=== PATIENT | male | born 1960 ===

== ENCOUNTER 2021-05-07 12:01 | Observation (INO) ==
[~2021-05-07 12:01] MED LIST: Buffered Lidocaine 1% SYRIN 1 ml INTRADERM ONE; Lactated Ringers 1000 ml BAG 1,000 ML IV SCH
[2021-05-07] MEDS ORDERED: ceFAZolin 2 GM in NS PREMIX 2 GM/100 ML BAG IVPB ONE (13:00)
[2021-05-07] MEDS ORDERED: Phenylephrine IV 10 MG/ML 1 ml VIAL ONE (13:05)
[2021-05-07] MEDS ORDERED: fentaNYL 100 mcg/2 ml 50 MCG/ML VIAL ONE ×2 (13:05→17:24)
[2021-05-07] MEDS ORDERED: Lidocaine 2% PF 5 ML VIAL ONE ×2 (13:05→13:58)
[2021-05-07] MEDS ORDERED: Midazolam 2 mg/2 ml VIAL 1 mg/ml 2 ml VIAL (2 mg) ONE (13:05)
[2021-05-07] MEDS ORDERED: Propofol 10 MG/ML 20 ML BTL ONE (13:06)
[2021-05-07] MEDS ORDERED: ROPIVACAINE 5 MG/ML 30 ML BTL (0.5%) ONE ×2 (13:29→13:57)
[2021-05-07] MEDS ORDERED: Dexmedetomidine 200 mcg/2 ml 2 ml VIAL (200 mcg) ONE (13:57)
[2021-05-07] MEDS ORDERED: Ondansetron 4 mg VIAL 2 MG/ML 2 ml VIAL ONE (15:02)
[2021-05-07] MEDS ORDERED: Dexamethasone IV 4 MG/ML VIAL 1 ml VIAL ONE (15:02)
[2021-05-07] MEDS ORDERED: Morphine 2 MG/ML SYRINGE IV PRN (15:42)
[2021-05-07] MEDS ORDERED: Ondansetron 4 mg VIAL 2 MG/ML 2 ml VIAL IV PRN (15:42)
[2021-05-07] MEDS ORDERED: Lactulose 30 ml UDC PO PRN (15:42)
[2021-05-07] MEDS ORDERED: diPHENhydraMINE 25 mg TAB PO PRN (15:42)
[2021-05-07] MEDS ORDERED: Ondansetron ODT 4 mg TAB 4 MG TAB PO PRN (15:42)
[2021-05-07] MEDS ORDERED: diPHENhydraMINE IV 50 MG/ML 1 ml VIAL (BENADRYL) IV PRN (15:42)
[2021-05-07] MEDS ORDERED: Magnesium Hydroxide LIQ 30 ML UDC PO PRN (15:42)
[2021-05-07] MEDS ORDERED: Morphine 4 MG/ML VIAL (1 ml) IV PRN (17:16)
[2021-05-07] MEDS ORDERED: oxyCODONE/Acetamin 5/325 mg TAB ONE ×2 (17:24→17:59)
[2021-05-07] MEDS: fentaNYL 100 mcg/2 ml 50 MCG/ML VIAL IV PRN ×2 (17:25→17:33)
[2021-05-07] MEDS: oxyCODONE/Acetamin 5/325 mg TAB PO PRN ×2 (17:26→17:59)
[2021-05-07] MEDS: Lactated Ringers 1000 ml BAG 1,000 ML IV SCH (18:35)
[2021-05-07] MEDS: Magnesium Hydroxide LIQ 30 ML UDC PO SCH (20:11)
[2021-05-07] MEDS: ceFAZolin 1 GM ADVAN 1 GM in NS 0.9% 50 ML 50 ML IVPB SCH (23:08)
[2021-05-08] MEDS: ceFAZolin 1 GM ADVAN 1 GM in NS 0.9% 50 ML 50 ML IVPB SCH ×3 (03:58→11:36)
[2021-05-08] MEDS: Lactated Ringers 1000 ml BAG 1,000 ML IV SCH (03:58)
[2021-05-08] MEDS ORDERED: ceFAZolin 1 GM ADVAN 1 GM in NS 0.9% 50 ML 50 ML IVPB SCH (04:00)
[2021-05-08 05:22] LABS: Hematocrit 36 % (42-52); Hemoglobin 12.8 g/dL (14.0-18.0); Mean Platelet Volume 7.6 fL (7.4-10.4); Platelet Count 226 10^3/uL (150-450)
[2021-05-08 05:33] LABS: Calcium 8.8 mg/dL (8.6-10.3); EGFR African American 101.8 (>60); EGFR Non-African American 84.1 (>60); Potassium 4.1 mmol/L (3.5-5.0)
[2021-05-08] MEDS: Magnesium Hydroxide LIQ 30 ML UDC PO SCH (07:35)
[2021-05-08] MEDS ORDERED: Vitamin THERAPEUTIC TAB PO SCH (09:00)
[2021-05-08 11:06] VITALS: BP 102/68
[2021-05-08] MEDS ORDERED: Aspirin EC 81 mg TAB.EC (enteric coated) PO SCH (13:00)
== END 2021-05-08 12:40 | disposition home or self-care (01) ==
LOC: OR 12:01 → SSU 12:01
PROVIDERS: ADMIT Orthopaedic Surgery Adult Reconstructive Orthopaedic Surgery; ATTEND Orthopaedic Surgery Adult Reconstructive Orthopaedic Surgery